=== PATIENT | female | born 2000 | race Two or more races ===

== ENCOUNTER 2020-06-13 10:47 | Emergency (ER) | payer OTHER ==
[2020-06-13 10:54] VITALS: BP 116/69
[2020-06-13] MEDS ORDERED: METOCLOPRAMIDE HCL INJ/PF 10 MG/2 ML SDV IV ONE ×2 (12:48→18:15)
[2020-06-13] MEDS ORDERED: NORMAL SALINE 1000 ML 1,000 ML IV ONE (12:48)
[2020-06-13] MEDS ORDERED: DIPHENHYDRAMINE HCL 50 MG/ML VIAL IV ONE ×2 (12:48→18:15)
--- NOTE | 2020-06-13 12:48 | ER Document Report ---
ED Medical Screen (RME) - General Stated Complaint: NAUSEA MIGRAINE Time Seen by Provider: 06/13/20 12:42 - HPI Notes: 06/13/20 12:49 19-year-old female recently relocated from [facility] to [facility] in February 2020 presents to the emergency room for evaluation of a migraine that she has been experiencing for the last 2 weeks to her right frontal. Patient states she does have a history of migraines, her medical records are not ". Does not have a primary care provider that she is following up with. States she has tried a medication "headache" and NyQuil without relief. Denies worst headache of life, denies thunderclap headache. Reports last menstrual cycle was 05/13/2020. Denies taking any everyday medications. Eating and drinking without issues. Denies photophobia and phonophobia. Patient is unsure of her vaccination history. Denies any neck pain I have greeted and performed a rapid initial assessment of this patient. A comprehensive ED assessment and evaluation of the patient, analysis of test results and completion of the medical decision making process will be conducted by additional ED providers. PHYSICAL EXAMINATION: GENERAL: Well-appearing, well-nourished and in no acute distress. HEAD: Atraumatic, normocephalic. EYES: Pupils equal round extraocular movements intact, conjunctiva are normal. NECK: Normal range of motion CV: s1, s2 regular LUNGS: No respiratory distress NEUROLOGICAL: Normal speech, normal gait. 06/13/20 12:50 - Related Data Allergies/Adverse Reactions: No Known Allergies Allergy (Verified 06/13/20 12:40) Physical Exam - Vital signs Vitals: Temp Pulse Resp BP Pulse Ox 98.3 F 95 14 116/69 100 06/13/20 10:52 06/13/20 10:52 06/13/20 10:52 06/13/20 10:52 06/13/20 10:52 Course - Vital Signs Vital signs: Temp Pulse Resp BP Pulse Ox 98.3 F 95 14 116/69 100 06/13/20 10:52 06/13/20 10:52 06/13/20 10:52 06/13/20 10:52 06/13/20 10:52
[2020-06-13 13:35] LABS: APPEARANCE,URINE SLIGHTLY-CLOUDY; BILIRUBIN,URINE NEGATIVE (NEGATIVE); COLOR,URINE YELLOW; GLUCOSE, URINE NEGATIVE (NEGATIVE); KETONES,URINE NEGATIVE (NEGATIVE); LEUKOCYTE ESTERASE,URINE NEGATIVE (NEGATIVE); NITRITE,URINE NEGATIVE (NEGATIVE); PROTEIN,URINE NEGATIVE (NEGATIVE); URINE SPECIFIC GRAVITY 1.006; UROBILINOGEN,URINE NEGATIVE mg/dL (<2.0)
[2020-06-13 13:36] LABS: ABSOLUTE LYMPHOCYTES (AUTO) 1.7 10^3/uL (0.5-4.7); ABSOLUTE MONOCYTES (AUTO) 0.4 10^3/uL (0.1-1.4); ABSOLUTE NEUT (AUTO) 2.5 10^3/uL (1.7-8.2); BASOPHILS % (AUTO) 0.6 % (0-2); EOSINOPHILS % (AUTO) 0.5 % (0-6); HEMATOCRIT 41.8 % (36.0-47.0); HEMOGLOBIN 14.5 g/dL (12.0-15.5); LYMPHOCYTES % (AUTO) 35.8 % (13-45); MEAN CORPUSCULAR HEMOGLOBIN 30.1 pg (27.0-33.4); MEAN CORPUSCULAR HGB CONC 34.6 g/dL (32.0-36.0); MEAN CORPUSCULAR VOLUME 87 fl (80-97); MONOCYTES % (AUTO) 9.5 % (3-13); PLATELET COUNT 271 10^3/uL (150-450); SEGMENTED NEUTROPHILS % (AUTO) 53.6 % (42-78); TOTAL CELLS COUNTED % (AUTO) 100 %; WHITE BLOOD COUNT 4.7 10^3/uL (4.0-10.5)
[2020-06-13 13:58] LABS: ALBUMIN 4.9 g/dL (3.5-5.0); ALKALINE PHOSPHATASE 82 U/L (38-126); ANION GAP 10 (5-19); ASPARTATE AMINO TRANSFERASE 38 U/L (14-36); BILIRUBIN,TOTAL 0.7 mg/dL (0.2-1.3); BLOOD UREA NITROGEN 9 mg/dL (7-20); CALCIUM 9.8 mg/dL (8.4-10.2); CARBON DIOXIDE 24 mmol/L (22-30); CHLORIDE 104 mmol/L (98-107); GLUCOSE 89 mg/dL (75-110); POTASSIUM 4.8 mmol/L (3.6-5.0); TOTAL PROTEIN 8.9 g/dL (6.3-8.2)
--- NOTE | 2020-06-13 18:21 | ER Document Report ---
ED Headache - General Chief Complaint: Headache Stated Complaint: NAUSEA MIGRAINE Time Seen by Provider: 06/13/20 12:42 Information source: Patient Notes: Patient is a 19-year-old female comes emergency room complaining of headache. Patient states that the headache has been ongoing for the past 2 weeks with increasing intensity over the past couple of days. She has a history of headaches over the last couple of years and states that they are migraine headaches but she states she has never seen a doctor for them. She is never been to the hospital before for her headaches. What brought her in today is when she woke up her headache was an 8 out of 10 in runs from the forehead all the way to the back. It is not bending and type according the patient patient denies any medical history has no medical problems in the past she denies any current stress. She does admit to having photophobia with nausea but no vomiting. Even though patient states that her headaches are similar to when she has had in years past these are more intense and they are becoming more frequent. Patient also states that she is currently moved to the local area and she has an appointment sometime this week with her new primary care provider. TRAVEL OUTSIDE OF THE [place] IN LAST 30 DAYS: No - HPI Patient complains to provider of: Headache Patient reports: Hx chronic headaches Onset: Other - 2 weeks Onset was: Gradual Timing: Still present Quality of pain: Achy, Throbbing Severity: Moderate Pain Level: 3 Context: denies: Head injury, Meningitis exposure Associated symptoms: Nausea/vomiting, Photophobia. denies: Neck pain Exacerbated by: Light. denies: Noise, Movement, Position Similar symptoms previously: Yes Recently seen / treated by doctor: No - Related Data Allergies/Adverse Reactions: No Known Allergies Allergy (Verified 06/13/20 12:40) Past Medical History - General Information source: Patient - Social History Smoking Status: Never Smoker Cigarette use (# per day): No Chew tobacco use (# tins/day): No Smoking Education Provided: No Frequency of alcohol use: None Drug Abuse: None Lives with: Family Family History: Reviewed & Not Pertinent Review of Systems - Review of Systems Constitutional: No symptoms reported EENT: No symptoms reported Cardiovascular: No symptoms reported Respiratory: No symptoms reported Gastrointestinal: No symptoms reported Genitourinary: No symptoms reported Female Genitourinary: No symptoms reported Musculoskeletal: No symptoms reported Skin: No symptoms reported Hematologic/Lymphatic: No symptoms reported Neurological/Psychological: No symptoms reported, Headaches -: Yes All other systems reviewed and negative Physical Exam - Vital signs Vitals: Temp Pulse Resp BP Pulse Ox 98.3 F 95 14 116/69 100 06/13/20 10:52 06/13/20 10:52 06/13/20 10:52 06/13/20 10:52 06/13/20 10:52 Interpretation: Normal - Notes Notes: PHYSICAL EXAMINATION: GENERAL: Well-appearing, well-nourished and in no acute distress. HEAD: Atraumatic, normocephalic. EYES: Pupils equal round and reactive to light, extraocular movements intact, conjunctiva are normal. ENT: Nares patent, oropharynx clear without exudates. Moist mucous membranes. NECK: Normal range of motion, supple without lymphadenopathy no meningismus LUNGS: Breath sounds clear to auscultation bilaterally and equal. No wheezes rales or rhonchi. HEART: Regular rate and rhythm without murmurs ABDOMEN: Soft, nontender, nondistended abdomen. No guarding, no rebound. No masses appreciated. Female : deferred Musculoskeletal: Normal range of motion, no pitting or edema. No cyanosis. NEUROLOGICAL: Cranial nerves grossly intact. Normal speech, normal gait. Normal sensory, motor exams PSYCH: Normal mood, normal affect. SKIN: Warm, Dry, normal turgor, no rashes or lesions noted. Course - Re-evaluation Re-evalutation: 06/13/20 21:05 Patient has been here an extended amount of time today secondary to unavailability of rooms to get IV fluids and medications for headache. She was finally brought back to room 38 where she received the fluids and medications without much relief she went from a 8 out of 10 down to a 5 out of 10. After rediscussion with the patient she does inform me that she has never been evaluated for the headaches in the past by a doctor. She just assume these are migraine headaches. Her concern today was that becoming more intense and more frequent. Patient is currently moved here to the local area. Given that patient got little relief with the medications and fluids and given that she has never been evaluated by a physician these are basically new onset headaches with a more intense presentation. Photophobia seems to be a new onset as well. Neurologically patient is intact and NIH score of 0 was obtained on initial examination. 06/13/20 21:09 Also stated patient does travel the middle she states she uses a mask frequently and has no other symptoms and no fever with headache being the presenting factor of the rothman as well we decided to go ahead and test patient for the rothman since she is travels. - Vital Signs Vital signs: Temp Pulse Resp BP Pulse Ox 98.3 F 95 14 116/69 100 06/13/20 10:52 06/13/20 10:52 06/13/20 10:52 06/13/20 10:52 06/13/20 10:52 - Laboratory Result Diagrams: 06/13/20 13:00 06/13/20 13:00 Laboratory results interpreted by me: 06/13/20 13:00 AST 38 H ALT 68 H Total Protein 8.9 H Discharge - Discharge Clinical Impression: Headache Qualifiers: Headache type: tension-type Headache chronicity pattern: acute headache Intractability: intractable Qualified Code(s): G44.201 - Tension-type headache, unspecified, intractable Condition: Stable Disposition: HOME, SELF-CARE Instructions: COVID-19 Guidance for Persons Under Investigation, Use of Diphenhydramine, Headache ([facility]), Toradol Injection ([facility]) Additional Instructions: Home and rest. I am writing you for a medication that may help relieve this type of headaches. But since you have an appointment coming up with a primary care provider you need to readdress the issues with them. As stated we are testing you for the coronavirus just because of the headache symptomatology and increasing frequency intensity. So at this point I would still self isolate and to get the results back. Continue to wear your mask at all times. Return to ER for any concerns or problems. Prescriptions: Butalb/Acetaminophen/Caffeine [Fioricet (50-325-40 mg) Tablet] 1 tab PO Q4H #12 tab Forms: Parent Work Note, Return to Work
--- NOTE | 2020-06-13 19:53 | RADIOLOGY REPORT (SQ) ---
EXAM DESCRIPTION: CT HEAD WITHOUT IMAGES COMPLETED DATE/TIME: 06/13/2020 7:40 pm REASON FOR STUDY: headache COMPARISON: None. TECHNIQUE: Axial images acquired through the brain without intravenous contrast. Images reviewed wi th bone, brain and subdural windows. Additional sagittal and coronal reconstructions were generated. Images stored on PACS. All CT scanners at this facility use dose modulation, iterative reconstruction, and/or weight based d osing when appropriate to reduce radiation dose to as low as reasonably achievable (ALARA). [facility]: Dose Right [facility]: CareDose [facility]: Dose Right [facility]: Teradose 4D [facility]: [employer] RADIATION DOSE: CT Rad equipment meets quality standard of care and radiation dose reduction techniq ues were employed. CTDIvol: 53.2 mGy. DLP: 937 mGy-cm. mGy. LIMITATIONS: None. FINDINGS: VENTRICLES: Normal size and contour. CEREBRUM: No masses. No hemorrhage. No midline shift. No evidence for acute infarction. Normal gra y/white matter differentiation. No areas of low density in the white matter. CEREBELLUM: No masses. No hemorrhage. No alteration of density. No evidence for acute infarction. EXTRAAXIAL SPACES: No fluid collections. No masses. ORBITS AND GLOBE: No intra- or extraconal masses. Normal contour of globe without masses. CALVARIUM: No fracture. PARANASAL SINUSES: No fluid or mucosal thickening. SOFT TISSUES: No mass or hematoma. OTHER: No other significant finding. IMPRESSION: NORMAL BRAIN CT WITHOUT CONTRAST. EVIDENCE OF ACUTE STROKE: NO. COMMENT: Quality ID # [id number]: Final reports with documentation of one or more dose reduction techniques (e.g., Automated exposure control, adjustment of the mA and/or kV according to patient size, use of iterative reconstruction technique) TECHNICAL DOCUMENTATION: JOB ID: [id number] 2010 [employer]- All Rights Reserved Reading location - IP/workstation name: [email or web address]
[2020-06-13] MEDS ORDERED: KETOROLAC TROMETHAMINE INJ/PF 30 MG/1 ML SDV IV ONE (20:36)
== END 2020-06-13 21:51 | disposition home or self-care (01) ==
LOC: ER 10:47
DX: G44.201 Tension-type headache, unspecified, intractable (principal); Z20.828 Contact with and (suspected) exposure to other viral communicable diseases
CPT/HCPCS: 99285; 96361; 96374; 96375; 36415; 84702; 85025; 87635; 80053; 81001; 70450; J1200; J1885; J2765; J7030; C9803